=== PATIENT | female | born 1995 | race Caucasian/White ===

== ENCOUNTER 2021-01-29 09:01 | Outpatient (CLI) | payer OTHER, SELFPAY ==
[2021-01-29 09:31] VITALS: BP 99/60; PULSE 91; RESP 18; TEMP 36.7; O2SAT 98; BMI 32.1
[2021-01-29 12:07] LABS: Microscopic, Urine URINE MICROSCOPIC (MICROSCOPIC)
[2021-01-29 12:18] LABS: Appearance,Urine CLEAR (Clear); Bilirubin,Urine Negative (Negative); Blood, Urine Negative (Negative); Color,Urine YELLOW (Yellow); Glucose,Urine (UA) Negative (Negative); Ketones,Urine 3+ (Negative); Leukocyte Esterase,Urine 1+ (Negative); Nitrate,Urine Negative (Negative); PH,Urine 5.5 (5.0-8.5); Protein,Urine Negative (Negative); Urobilinogen,Urine 0.2 EU/dl (0.2)
[2021-01-29 12:29] LABS: Bacteria,Urine 1+ /lpf; RBC,Urine Occasional #/hpf (0-3)
[2021-01-29 12:30] LABS: Barbiturates Screen,Urine Negative ng/ml (<200)
[2021-01-29 12:31] LABS: Amphetamine/Metha Screen,Urine Negative ng/ml (<1000); Benzodiazepines Screen,Urine Negative ng/ml (<200)
[2021-01-29 12:35] LABS: Cannabinoid Screen,Urine Negative ng/ml (<50); Cocaine Screen,Urine Negative ng/ml (<300)
[2021-01-29 12:36] LABS: Methadone Screen,Urine Negative ng/ml (<300)
[2021-01-29 12:37] LABS: Opiate Screen,Urine Negative ng/ml (<300); Phencyclidine Screen,Urine Negative ng/ml (<25)
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
== END 2021-01-29 17:17 | disposition home or self-care (01) ==
LOC: OBOUT 09:05 → OB 09:08
PROVIDERS: PCP Family Medicine; Visit Provider Obstetrics & Gynecology
DX: O47.03 False labor before 37 completed weeks of gestation, third trimester (principal); Z3A.32 32 weeks gestation of pregnancy; R10.2 Pelvic and perineal pain
CPT/HCPCS: 59025; 80305; 81001; 87086; 96367; 96372; G0463; J0456

== ENCOUNTER → 2021-02-15 10:27 | Outpatient (CLI) | payer OTHER, SELFPAY ==
--- NOTE | 2021-02-15 10:27 | US_ITS ---
PROCEDURE: US OB FOLLOW UP CLINICAL INDICATION: Growth and ZHAO COMPARISON: No exams were available for comparison FINDINGS: There is a single live fetus present in cephalic presentation. Cervix is closed and measures 3 cm. heart and body motion is noted. The placenta is anterior and fundal in implantation and grade 1 Measurements: Average ultrasound age 34weeks 4days. Gestational Age 34weeks 4days Estimated due date by ultrasound age 0803/25/2021. Estimated weight 2,436g BPD = 35weeks OFD = 35weeks 2days HC = 34weeks 5days AC = 35weeks 1day FL = 33weeks 1day Growth Percentile= 46% Heart Rate = ZHAO is 11 cm. Biophysical profile is 8 of 8 HC/AC is 1 CI is 0.79 FL/BPD is 0.74 FL/AC is 0.21 IMPRESSION: Live IUP in cephalic presentation. Estimated weight is 2436 g which is 46 percentile. Average ultrasound age is 34 weeks 4 days. Biophysical profile 8 of 8 ZHAO 11 cm Dictated by: Milan Moscoso MD 02/15/2021 16:57 Milan Moscoso MD in OV 02/15/2021 16:57
== END ==
PROVIDERS: PCP Family Medicine; Visit Provider Obstetrics & Gynecology
DX: Z34.90 Encounter for supervision of normal pregnancy, unspecified, unspecified trimester (principal)
CPT/HCPCS: 76816

== ENCOUNTER 2021-02-24 16:46 | Outpatient (CLI) | payer OTHER, SELFPAY ==
[2021-02-24 16:54] VITALS: BMI 33.2
[2021-02-24 17:29] LABS: Microscopic, Urine URINE MICROSCOPIC (MICROSCOPIC)
[2021-02-24 17:30] LABS: Appearance,Urine CLEAR (Clear); Bilirubin,Urine Negative (Negative); Blood, Urine Negative (Negative); Color,Urine YELLOW (Yellow); Glucose,Urine (UA) Negative (Negative); Ketones,Urine TRACE (Negative); Leukocyte Esterase,Urine TRACE (Negative); Nitrate,Urine Negative (Negative); PH,Urine 6.5 (5.0-8.5); Protein,Urine Negative (Negative); Specific Gravity, Urine 1.025 (1.005-1.030); Urobilinogen,Urine 0.2 EU/dl (0.2)
[2021-02-24 17:33] LABS: Fetal Membrane Rupture (Rapid) Negative (Negative)
[2021-02-24 17:37] LABS: Amorphous Sediment,Urine 1+ /lpf; WBC,Urine Occasional #/hpf (0-3)
[2021-02-24 17:43] VITALS: BP 122/77; PULSE 100; RESP 16; TEMP 36.8; O2SAT 100; BMI 33.2
[2021-02-24 17:45] LABS: Amphetamine/Metha Screen,Urine Negative ng/ml (<1000); Barbiturates Screen,Urine Negative ng/ml (<200); Benzodiazepines Screen,Urine Negative ng/ml (<200); Cannabinoid Screen,Urine Negative ng/ml (<50); Cocaine Screen,Urine Negative ng/ml (<300); Methadone Screen,Urine Negative ng/ml (<300)
[2021-02-24 17:46] LABS: Opiate Screen,Urine Negative ng/ml (<300)
[2021-02-24 17:47] LABS: Phencyclidine Screen,Urine Negative ng/ml (<25)
== END 2021-02-24 18:00 | disposition home or self-care (01) ==
LOC: OBOUT 16:47 → OB 16:49
PROVIDERS: PCP Family Medicine; Visit Provider Nurse Practitioner Obstetrics & Gynecology
DX: O26.893 Other specified pregnancy related conditions, third trimester (principal); Z3A.35 35 weeks gestation of pregnancy; R10.2 Pelvic and perineal pain
CPT/HCPCS: 59025; 80305; 81001; 84112; G0463

== ENCOUNTER → 2021-02-26 18:01 | Outpatient (CLI) | payer OTHER, SELFPAY | PROVIDERS: Visit Provider Obstetrics & Gynecology | DX: Z34.90 Encounter for supervision of normal pregnancy, unspecified, unspecified trimester (principal) | CPT/HCPCS: 86403 ==

== ENCOUNTER 2021-03-07 10:40 | Outpatient (CLI) | payer OTHER, SELFPAY ==
[2021-03-07 11:03] VITALS: BMI 32.2
[2021-03-07 11:05] VITALS: BP 112/74; PULSE 89; RESP 20; TEMP 36.8; O2SAT 100; BMI 32.5
[2021-03-07 11:08] LABS: Coronavirus 19, PCR Not Detected (NotDetected); Influenza A, PCR Not Detected (NotDetected); Influenza B, PCR Not Detected (NotDetected)
== END 2021-03-07 13:48 | disposition home or self-care (01) ==
LOC: OBOUT 10:41 → OB 10:43
PROVIDERS: PCP Family Medicine; Visit Provider Obstetrics & Gynecology
DX: O36.8130 Decreased fetal movements, third trimester, not applicable or unspecified (principal); Z3A.37 37 weeks gestation of pregnancy; R51.9 Headache, unspecified; R11.2 Nausea with vomiting, unspecified; R53.1 Weakness
CPT/HCPCS: 59025; 96365; 96366; 96367; G0463; J2405; U0003

== ENCOUNTER 2021-03-19 00:02 | Outpatient (CLI) | payer OTHER, SELFPAY ==
[2021-03-19 00:16] VITALS: BMI 32.4
[2021-03-19 00:45] LABS: Microscopic, Urine URINE MICROSCOPIC (MICROSCOPIC)
[2021-03-19 00:51] LABS: Appearance,Urine CLEAR (Clear); Bilirubin,Urine Negative (Negative); Blood, Urine Negative (Negative); Color,Urine YELLOW (Yellow); Glucose,Urine (UA) Negative (Negative); Ketones,Urine 1+ (Negative); Leukocyte Esterase,Urine Negative (Negative); Nitrate,Urine Negative (Negative); PH,Urine 6.5 (5.0-8.5); Protein,Urine 2+ (Negative); Specific Gravity, Urine >= 1.030 (1.005-1.030)
[2021-03-19 01:02] LABS: Amphetamine/Metha Screen,Urine Negative ng/ml (<1000)
[2021-03-19 01:03] LABS: Barbiturates Screen,Urine Negative ng/ml (<200)
[2021-03-19 01:04] LABS: Benzodiazepines Screen,Urine Negative ng/ml (<200); Cannabinoid Screen,Urine Negative ng/ml (<50)
[2021-03-19 01:05] LABS: Cocaine Screen,Urine Negative ng/ml (<300); Methadone Screen,Urine Negative ng/ml (<300)
[2021-03-19 01:06] LABS: Opiate Screen,Urine Negative ng/ml (<300)
[2021-03-19 01:07] LABS: Phencyclidine Screen,Urine Negative ng/ml (<25)
[2021-03-19 01:24] LABS: Bacteria,Urine 1+ /lpf; Mucus,Urine 1+ /lpf
[2021-03-19 02:00] VITALS: BP 130/73; PULSE 83; RESP 18; TEMP 36.9; O2SAT 98; BMI 32.4
[2021-03-19 02:28] LABS: Basophils % 0.4 % (0.1-2.0); Eosinophils # 0.1 K/mm3 (0.0-0.4); Eosinophils % 1.1 % (0.1-12.0); Hematocrit 32.6 % (37.0-47.0); Hemoglobin 10.3 g/dL (12.2-16.2); Lymphocytes # 2.3 K/mm3 (0.7-4.5); Lymphocytes % 24.2 % (10-50); Mean Corpuscular HGB Conc 31.6 g/dL (31.8-35.4); Mean Corpuscular Hemoglobin 23.5 pg (27.0-31.2); Mean Corpuscular Volume 74.5 fl (81-99); Mean Platelet Volume 9.5 fl (7.4-10.4); Monocytes # 0.5 K/mm3 (0.1-1.0); Monocytes % 5.6 % (1.7-9.3); Neutrophils # 6.6 K/mm3 (1.8-7.8); Neutrophils % 68.8 % (37.0-80.0); Platelet Count 185 K/mm3 (142-424); Red Blood Count 4.38 M/mm3 (4.20-5.40); Red Cell Distribution Width 14.6 % (11.5-17.5); White Blood Count 9.6 K/mm3 (4.8-10.8)
== END 2021-03-19 06:50 | disposition home or self-care (01) ==
LOC: OBOUT 00:04 → OB 00:04
PROVIDERS: PCP Family Medicine; Visit Provider Nurse Practitioner Obstetrics & Gynecology
DX: Z34.90 Encounter for supervision of normal pregnancy, unspecified, unspecified trimester (principal)
CPT/HCPCS: 59025; 80305; 81001; 85025; 86850; 94761; G0283; J2405; U0003

== ENCOUNTER 2021-03-20 03:20 | Inpatient (IN) | payer OTHER, SELFPAY ==
[2021-03-20 03:20] VITALS: BP 135/93; PULSE 108; RESP 22; TEMP 36.6; O2SAT 99; BMI 32.4
--- NOTE | 2021-03-20 04:22 | HMH.HP ---
*Admission Date: 03/20/21 *Chief complaint: contractions *History of present illness: 25 yo @ 39 08/30 presented with contractions. Covid positive test from 03/19/21. Initial cervical exam 4cm with rapid progression to 8cm and admitted for active labor AROM clear fluid and FSE placed without difficulty or complication because maternal pain was precluding stationary position for external monitoring. [facility] History I have reviewed the patient's past medical history: Yes *Have you ever received a pneumonia vaccine?: No *Have you received a flu vaccine this season?: No Other Surgeries: No: Amputation: No Fractures: No - *Social History Smoking Status: Never smoker Alcohol Intake: never Substance Use Type: denies use *Occupational Status:: unemployed *Travel in the last 8 weeks: None Family Hx:: Cancer, Coronary Artery Disease, Diabetes, Hypertension, Hyperlipidemia, Heart Attack : 4 Para: 3 Review of Systems - Review of Systems Review of systems:: pertinent systems reviewed and negative unless documented below - Constitutional Denies chills, Denies fever(s) - *Respiratory Reports cough - *Gastrointestinal Reports nausea, Reports vomiting - *Genitourinary Denies abnormal vaginal bleeding Meds Home Medications Medication Instructions Recorded Confirmed Type ondansetron 4 mg disintegrating 4 mg PO Q4H #90 tab 03/07/21 Rx tablet Allergies Allergy/AdvReac Type Severity Reaction Status Date / Time No Known Allergies Allergy Verified 03/12/21 14:45 Exam Vital signs and Labs for Last 24 Hours: Temp Pulse Resp BP Pulse Ox 97.9 F 108 H 22 135/93 H 99 03/20/21 03:20 03/20/21 03:20 03/20/21 03:20 03/20/21 03:20 03/20/21 03:20 I & O for Last 24 hours: Intake & Output 03/17/21 03/18/21 03/19/21 03/20/21 11:59 11:59 11:59 11:59 Weight 183 lb - Constitutional Comments: pain with labor - *Routine HEENT Exam Head: Present: normocephalic Eye: Absent: scleral injection ENT: Present: mucous membranes moist - *Routine Neck Exam Present: supple. Absent: lymphadenopathy - *Routine Respiratory Exam Present: CTA bilaterally - *Routine Cardiovascular Exam Present: RRR - *Routine Abdominal Exam Present: soft, normoactive bowel sounds. Absent: tenderness - *Routine Rectal Exam Rectal:: deferred - *Routine Genitalia Exam Genitalia:: normal female - *Routine Extremities Exam Absent: cyanosis, clubbing, edema - *Routine Skin Exam Present: warm. Absent: rash - *Routine Neurological Exam Present: alert, oriented X3 Assessment and Plan (1) 39 weeks gestation of Status: Acute Category: Medical Code(s): Z3A.39 - 39 weeks gestation of (2) Active labor at term Status: Acute Category: Medical (3) COVID-19 affecting , antepartum Status: Acute Category: Medical Code(s): O98.519 - Other viral diseases complicating , unspecified trimester; U07.1 - COVID-19 - Assessment and plan all Dx Assessment and Plan for all problems:: admitted in active labor status reassuring anticipate covid precautions in place
--- NOTE | 2021-03-20 04:29 | HMH.DN ---
- Delivery Note Delivery Date:: 03/20/21 Delivery Time:: 04:05 Anesthesia Type: None Was labor medically induced?: No Infant delivered prior to 39 weeks?: No Infant Gender: Female at 1 minute: 7 at 5 minutes: 8 Delivery Procedure:: Spontaneous vaginal delivery of liveborn female infant over intact perineum. Delivery uncomplicated No nuchal cord; no shoulder dystocia with delivery taken to warmer immediately after umbilical cord clamped/cut, with standard nursing assessment performed Infant Apgars: 7 & 8 Placenta spontaneously expressed and examined; noted to be complete/intact. Vulva, vagina, and cervix inspected; no lacerations present EBL: 300 cc All sponge/needle/instrument counts correct at conclusion of procedure Disposition: Mom/baby stable to recovery in [facility] Placental Delivery Description: Spontaneous
[2021-03-20 08:16] LABS: Microscopic, Urine URINE MICROSCOPIC (MICROSCOPIC)
[2021-03-20 08:29] LABS: Appearance,Urine CLEAR (Clear); Bilirubin,Urine Negative (Negative); Blood, Urine Negative (Negative); Color,Urine YELLOW (Yellow); Glucose,Urine (UA) Negative (Negative); Ketones,Urine 1+ (Negative); Leukocyte Esterase,Urine Negative (Negative); Nitrate,Urine Negative (Negative); Protein,Urine 1+ (Negative); Specific Gravity, Urine >= 1.030 (1.005-1.030); Urobilinogen,Urine 0.2 EU/dl (0.2)
[2021-03-20 08:46] LABS: Bacteria,Urine Trace /lpf; RBC,Urine Occasional #/hpf (0-3)
[2021-03-20 09:06] LABS: Barbiturates Screen,Urine Negative ng/ml (<200); Benzodiazepines Screen,Urine Negative ng/ml (<200)
[2021-03-20 09:07] LABS: Amphetamine/Metha Screen,Urine Negative ng/ml (<1000)
[2021-03-20 09:08] LABS: Cannabinoid Screen,Urine Negative ng/ml (<50); Cocaine Screen,Urine Negative ng/ml (<300)
[2021-03-20 09:09] LABS: Methadone Screen,Urine Negative ng/ml (<300)
[2021-03-20 09:10] LABS: Opiate Screen,Urine Negative ng/ml (<300)
[2021-03-20 09:20] LABS: Phencyclidine Screen,Urine Negative ng/ml (<25)
[2021-03-20 20:58] VITALS: BP 111/61; PULSE 89; RESP 18; TEMP 36.8; O2SAT 98
[2021-03-21 04:20] VITALS: BP 128/86; PULSE 75; RESP 17; TEMP 36.6; O2SAT 100
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
[2021-03-21 07:02] LABS: Hematocrit 30.8 % (37.0-47.0); Hemoglobin 9.9 g/dL (12.2-16.2)
--- NOTE | 2021-03-21 12:26 | P.DS_ITS ---
General - General Admission date:: 03/20/21 Discharge date: 03/21/21 HPI HPI: 25 yo @ 39 08/30 presented with contractions. Covid positive test from 03/19/21. Initial cervical exam 4cm with rapid progression to 8cm and admitted for active labor Hospital Course Hospital Course: Normal vaginal delivery course uncomplicated asymptomatic with covid positive status tolerating regular diet ambulating and voiding without difficulty lochia small Rhogam Administration: Not Indicated Objective Vital signs: Temp Pulse Resp BP Pulse Ox 97.8 F 75 17 128/86 100 03/21/21 04:20 03/21/21 04:20 03/21/21 04:20 03/21/21 04:20 03/21/21 04:20 Narrative: CONSTITUTIONAL: no acute distress HEENT: mucous membranes moist PULMONARY: lungs clear; breathing unlabored without audible wheezes CV: no tachycardia or visible JVD; normal LE peripheral pulses ABD: soft, NT/ND, no guarding : fundus firm at/below umbilicus SKIN: no visible rash or lesions EXT: 1+ edema LEs NEURO: alert/oriented, no altered mental status PSYCH: appropriate mood and demeanor Results Labs on day of discharge: Labs from last 24 hours 03/21/21 06:47 Hgb 9.9 L Hct 30.8 L DS: Diagnosis - Discharge Diagnosis (1) 39 weeks gestation of Status: Acute (2) Active labor at term Status: Acute (3) COVID-19 affecting , antepartum Status: Acute Discharge Plan - Patient Discharge Instructions Additional Instructions: *NO HEAVY LIFTING* *NO STRENUOUS ACTIVITY* *NOTHING IN THE VAGINA FOR 6 WEEKS* Patient Instructions: Depression, Hemorrhage, DI for Labor and Delivery, Vaginal , DI for Pre-eclampsia, DI for COVID-19 (Suspected or Confirmed ), [facility] Post Discharge Instructions - Follow up Plan Follow up with: Ashley Fan MD [Staff Physician] - 05/03/21 11:30 am Disposition: Home, Self-Care Condition at discharge:: Stable Home Medications: Home Medications Medication Instructions Recorded Confirmed Type Acetaminophen [Acetaminophen 325mg 650 mg PO Q4HP PRN tablet 03/21/21 Rx tab] Ibuprofen [Motrin 400mg 800 mg PO Q6HP PRN tablet 03/21/21 Rx tablet] Prescriptions/Medication Reconciliation: New Ibuprofen [Motrin 400mg tablet] 800 mg PO Q6HP PRN tablet PRN Reason: MILD TO MODERATE PAIN Acetaminophen [Acetaminophen 325mg tab] 650 mg PO Q4HP PRN tablet PRN Reason: Mild Pain - Problem Reconciliation Problems Reviewed?: Yes
== END 2021-03-21 16:43 | disposition home or self-care (01) | DRG 805 ==
LOC: OBOUT 03:23 → OB 03:23
PROVIDERS: Admitting Provider Obstetrics & Gynecology; PCP Family Medicine; Visit Provider Obstetrics & Gynecology
DX: O98.513 Other viral diseases complicating pregnancy, third trimester (principal); U07.1 COVID-19; Z37.0 Single live birth; Z3A.39 39 weeks gestation of pregnancy; O99.513 Diseases of the respiratory system complicating pregnancy, third trimester; J98.8 Other specified respiratory disorders
CPT/HCPCS: 59409; 59025; 80305; 81001; 85014; 85018; 85025; 86850; 94761; G0283; J0595; J2405; U0003

== ENCOUNTER → 2021-09-23 12:40 | Outpatient (CLI) | payer OTHER, SELFPAY | PROVIDERS: PCP Family Medicine; Visit Provider Obstetrics & Gynecology | DX: Z34.90 Encounter for supervision of normal pregnancy, unspecified, unspecified trimester (principal) | CPT/HCPCS: 36415; 84702 ==

== ENCOUNTER 2023-07-08 14:52 | Emergency (ER) | payer OTHER, SELFPAY ==
[2023-07-08 15:15] VITALS: BP 123/76; PULSE 80; RESP 18; TEMP 36.6; O2SAT 98; BMI 34.1
--- NOTE | 2023-07-08 15:46 | EXP.UTC ---
Discharge Plan Disposition Patient Disposition: Home, Self-Care Condition: Good Prescriptions Prescriptions: No Action Flintstones Complete Tablet,Chewable 1 tab PO DAILY Referrals Follow up/Referrals: Shaw Jones [Primary Care Provider] - See instructions Activity Restrictions/Add. Instructions Additional Instructions/Restrictions: finish antibiotics as ordered. Be sure to complete entire prescription even if feeling better Tylenol and ibuprofen as needed for pain or fever Humidifier/vaporizer/hot steamy shower Follow-up with primary care tomorrow. Follow-up immediately in the ER of the [facility] for new or worsening symptoms or no noticeable improvement over the next 48-72 hours. Stop smoking Clinical Impressions Clinical Impression: Bronchitis Instructions Patient Instructions: Acute Bronchitis Discharge ED Provider: Ana ([facility] HPI General Stated complaint: cough, JENKINS, chills Mode of Arrival: Ambulatory Source of Information: Patient Limitations: No Limitations Time Seen by Provider: 07/08/23 15:47 Description of Symptoms (Recalled from Triage Doc. by RN): cough, nausea, JENKINS, vomitting, and felt dizzy. HEENT Symptoms (Recalled from RN notes): Yes Resp Symptoms (Recalled from RN notes): No Skin Symptoms (Recalled from RN notes): No MS Symptoms (Recalled from RN notes): No Functional Status (Recalled from RN notes): n/a History of Present Illness Provider Complaint: 27 yr old female presents for cough, nausea, JENKINS, vomiting, and felt dizzy since thursday. pt states she is taking antibiotics for bronchitis, had covid test it was neg Related Data Home Medications Medication Instructions Recorded Confirmed pediatric multivitamin no.76 1 tab PO DAILY 11/01/21 07/08/23 (Flintstones Complete chewable tablet) Allergies Allergy/AdvReac Type Severity Reaction Status Date / Time No Known Allergies Allergy Verified 07/08/23 15:25 Worker's Comp Is this a Worker's Comp case?: No [facility] Disclaimer: The information contained in this section may have been updated after the patient was seen, as this information can be updated by other users. Social History , [employer]) Smoking Status: Never smoker alcohol intake: never substance use type: denies use current occupational status: unemployed Travel in the last 8 weeks: None ROS Obtained: Yes All systems reviewed & no additional complaints except as documented Constitutional Constitutional: Reports system reviewed and no additional complaints, except as documented, Reports as per HPI and Reports headache(s) Eyes Eyes: Reports system reviewed and no additional complaints, except as documented ENT Ears, Nose, Mouth, and Throat: Reports system reviewed and no additional complaints, except as documented, Reports as per HPI, Reports headache(s), Reports nasal congestion, Reports nasal discharge, Reports sinus pain, Reports sinus pressure and Reports sore throat Cardiovascular Cardiovascular: Reports system reviewed and no additional complaints, except as documented Respiratory Respiratory: Reports system reviewed and no additional complaints, except as documented, Reports as per HPI, Reports chest congestion and Reports cough Gastrointestinal Gastrointestingal: Reports system reviewed and no additional complaints, except as documented Integumentary/Breasts Skin/Breast: Reports system reviewed and no additional complaints, except as documented Neurologic Neurologic: Reports headache(s) Endocrine Endocrine: Reports system reviewed and no additional complaints, except as documented Hematologic/Lymphatic Henatologic/Lymphatic: Reports system reviewed and no additional complaints, except as documented Allergic/Immunologic Allergic/Immunologic: Reports system reviewed and no additional complaints, except as documented Physical Exam General General appearance: alert and in no apparent
[2023-07-08 15:48] LABS: UTC Strep Screen (Rapid) Negative (Negative)
[2023-07-08 16:00] VITALS: BP 123/76; PULSE 80; RESP 18; TEMP 36.6; O2SAT 98
== END 2023-07-08 16:00 | disposition home or self-care (01) ==
PROVIDERS: Emergency Provider Nurse Practitioner Family; PCP Family Medicine
DX: J20.9 Acute bronchitis, unspecified (principal); R05.9 Cough, unspecified; R51.9 Headache, unspecified; R11.2 Nausea with vomiting, unspecified; R42 Dizziness and giddiness; R68.83 Chills (without fever)
CPT/HCPCS: 87880; 99203; 99212; G0463